=== PATIENT | male | born 1955 | race African-American/Black ===

== ENCOUNTER 2017-03-09 18:14 | Inpatient (IN) ==
[2017-03-09 19:56] LABS: Basophils # 0.1 10*3/uL (0.0-0.2); Basophils % 2.1 % (0.0-0.8); Eosinophils # 0.1 10*3/uL (0.0-0.87); Eosinophils % 1.9 % (0.00-10.9); Hemoglobin 10.1 GM/DL (14.0-18.0); Immature Granulocytes % 0.4 %; Immature Granulocytes Absolute 0.02 #; Lymphocytes # 0.6 10*3/uL (1.4-4.0); Mean Corpuscular HGB Conc 30.6 GM/DL (32-36); Mean Corpuscular Hemoglobin 27 PG (27-34); Mean Corpuscular Volume 88.2 FL (87-102); Mean Platelet Volume 12.2 FL (9.6-12.0); Monocytes # 0.3 10*3/uL (0.11-0.8); Monocytes % 6.6 % (1.7-12.7); Platelet Count 204 T/CUMM (130-400); Red Blood Count 3.74 MC/CUMM (3.8-5.5); Red Cell Distribution Width 15.5 % (9.3-17.3); White Blood Count 5.2 T/CUMM (4-12)
[2017-03-09 20:19] LABS: CKMB % 2.3 %; Calcium 6.5 MG/DL (8.5-10.1); Osmolality,Calculated 316.1 MOS/KG (273-304); Potassium 4.4 MMOL/L (3.5-5.1)
[2017-03-09 20:20] LABS: Troponin I Only 0.173 NG/ML (0.00-0.045)
[2017-03-09] MEDS ORDERED: FLUTICASONE 220 MCG/PUFF INHALER 12 GM INH PRN (21:47)
[2017-03-09] MEDS ORDERED: hydrALAZINE 20 MG/1 ML VIAL IV PRN (22:12)
[2017-03-09 22:51] LABS: Apearance,Urine Slightly Hazy (Clear); Bilirubin,Urine Negative (Negative); Blood, Urine Moderate mg/dL (Negative); Glucose,Urine (UA) Negative (Negative); Hyaline Casts,Urine 1 /LPF (0-3); Ketones,Urine Negative (Negative); Nitrite,Urine Negative (Negative); Protein,Urine >=500 MG/DL; RBC,Urine 55 /HPF (0-4); Urine Color Yellow (Yellow); Urine Specific Gravity 1.012 (1.001-1.035); Urine Urobilinogen < 2.0 EU/DL (0.2-1.0); WBC,Urine 1 /HPF (0-6)
[2017-03-09 23:38] LABS: INR 1.7; PT Patient Result 18.1 SECS; Partial Thromboplastin Time 31.9 SECS (0-40)
[2017-03-10] MEDS: BUMETANIDE 1 MG/4 ML VIAL IV SCH ×2 (02:16→16:27)
[2017-03-10] MEDS: HEPARIN DRIP 25,000 UNITS/500 ML PREMIX IV SCH (02:33)
[2017-03-10 03:30] LABS: Basophils # 0.1 10*3/uL (0.0-0.2); Basophils % 2.1 % (0.0-0.8); Eosinophils # 0.2 10*3/uL (0.0-0.87); Eosinophils % 3.4 % (0.00-10.9); Hematocrit 30.3 VOL% (42.0-52.0); Hemoglobin 9.6 GM/DL (14.0-18.0); Immature Granulocytes % 0.4 %; Immature Granulocytes Absolute 0.02 #; Lymphocytes # 0.8 10*3/uL (1.4-4.0); Lymphocytes % 14.7 % (21.2-54.2); Mean Corpuscular HGB Conc 31.7 GM/DL (32-36); Mean Corpuscular Hemoglobin 27 PG (27-34); Mean Corpuscular Volume 86.3 FL (87-102); Mean Platelet Volume 12.9 FL (9.6-12.0); Monocytes # 0.5 10*3/uL (0.11-0.8); Monocytes % 10.1 % (1.7-12.7); Neutrophils # 3.6 10*3/uL (1.4-7.4); Neutrophils % 69.3 % (38.7-73.9); Platelet Count 205 T/CUMM (130-400); Red Blood Count 3.51 MC/CUMM (3.8-5.5); Red Cell Distribution Width 15.5 % (9.3-17.3); White Blood Count 5.2 T/CUMM (4-12)
[2017-03-10 03:55] LABS: Calcium 6.5 MG/DL (8.5-10.1); Potassium 4.7 MMOL/L (3.5-5.1)
[2017-03-10] MEDS: TACROLIMUS 0.5 MG CAPSULE PO SCH ×2 (10:01→21:39)
[2017-03-10] MEDS: TAMSULOSIN 0.4 MG CAPSULE PO SCH (10:02)
[2017-03-10] MEDS: oxyCODONE ER 20 MG TABLET PO SCH ×2 (10:02→21:39)
[2017-03-10] MEDS: metOLazone 5 MG TABLET PO SCH (10:03)
[2017-03-10] MEDS: predniSONE 5 MG TABLET PO SCH (10:03)
[2017-03-10] MEDS: ASPIRIN EC 81 MG TABLET PO SCH (10:04)
[2017-03-10] MEDS: MYCOPHENOLATE MOFETIL 250 MG CAPSULE PO SCH ×2 (10:04→21:42)
[2017-03-10] MEDS: FUROSEMIDE 80 MG TABLET PO SCH (16:27)
[2017-03-11] MEDS: HEPARIN DRIP 25,000 UNITS/500 ML PREMIX IV SCH ×2 (01:25→22:21)
[2017-03-11] MEDS: oxyCODONE/ACETAMINOPHEN 5-325 MG TABLET PO PRN (03:10)
[2017-03-11] MEDS: BUMETANIDE 1 MG/4 ML VIAL IV SCH (03:10)
[2017-03-11 06:39] LABS: Basophils # 0.1 10*3/uL (0.0-0.2); Basophils % 1.8 % (0.0-0.8); Eosinophils # 0.1 10*3/uL (0.0-0.87); Eosinophils % 3.7 % (0.00-10.9); Hematocrit 27.8 VOL% (42.0-52.0); Hemoglobin 8.7 GM/DL (14.0-18.0); Immature Granulocytes % 0.3 %; Immature Granulocytes Absolute 0.01 #; Lymphocytes # 0.7 10*3/uL (1.4-4.0); Lymphocytes % 18.7 % (21.2-54.2); Mean Corpuscular HGB Conc 31.3 GM/DL (32-36); Mean Corpuscular Hemoglobin 27 PG (27-34); Mean Corpuscular Volume 86.6 FL (87-102); Mean Platelet Volume 12.8 FL (9.6-12.0); Monocytes # 0.5 10*3/uL (0.11-0.8); Monocytes % 12.6 % (1.7-12.7); Neutrophils # 2.4 10*3/uL (1.4-7.4); Neutrophils % 62.9 % (38.7-73.9); Platelet Count 183 T/CUMM (130-400); Red Blood Count 3.21 MC/CUMM (3.8-5.5); Red Cell Distribution Width 15.7 % (9.3-17.3); White Blood Count 3.8 T/CUMM (4-12)
[2017-03-11 07:32] LABS: Calcium 6.1 MG/DL (8.5-10.1)
[2017-03-11 07:33] LABS: Osmolality,Calculated 316.3 MOS/KG (273-304); Potassium 4.4 MMOL/L (3.5-5.1)
[2017-03-11] MEDS: MYCOPHENOLATE MOFETIL 250 MG CAPSULE PO SCH ×2 (08:20→21:26)
[2017-03-11] MEDS: metOLazone 5 MG TABLET PO SCH (08:20)
[2017-03-11] MEDS: ASPIRIN EC 81 MG TABLET PO SCH (08:20)
[2017-03-11] MEDS: TAMSULOSIN 0.4 MG CAPSULE PO SCH (08:20)
[2017-03-11] MEDS: TACROLIMUS 0.5 MG CAPSULE PO SCH ×2 (08:20→21:26)
[2017-03-11] MEDS: predniSONE 5 MG TABLET PO SCH (08:20)
[2017-03-11] MEDS: FUROSEMIDE 80 MG TABLET PO SCH ×2 (08:21→15:49)
[2017-03-11] MEDS: oxyCODONE ER 20 MG TABLET PO SCH ×2 (08:21→22:24)
[2017-03-11] MEDS: ONDANSETRON 4 MG TABLET PO PRN (08:28)
[2017-03-11] MEDS: DIGOXIN 0.125 MG TABLET PO SCH (08:28)
[2017-03-11] MEDS: BUMETANIDE 2.5 MG/10 ML VIAL IV SCH (13:45)
[2017-03-11 18:42] LABS: INR 1.6; PT Patient Result 16.3 SECS
[2017-03-12 02:01] LABS: Basophils # 0.1 10*3/uL (0.0-0.2); Basophils % 1.6 % (0.0-0.8); Eosinophils # 0.1 10*3/uL (0.0-0.87); Eosinophils % 3.4 % (0.00-10.9); Hematocrit 27.3 VOL% (42.0-52.0); Hemoglobin 8.5 GM/DL (14.0-18.0); Immature Granulocytes % 0.3 %; Immature Granulocytes Absolute 0.01 #; Lymphocytes # 0.7 10*3/uL (1.4-4.0); Lymphocytes % 17.3 % (21.2-54.2); Mean Corpuscular HGB Conc 31.1 GM/DL (32-36); Mean Corpuscular Hemoglobin 27 PG (27-34); Mean Corpuscular Volume 86.7 FL (87-102); Monocytes # 0.4 10*3/uL (0.11-0.8); Monocytes % 11.4 % (1.7-12.7); Neutrophils # 2.6 10*3/uL (1.4-7.4); Platelet Count 154 T/CUMM (130-400); Red Blood Count 3.15 MC/CUMM (3.8-5.5); Red Cell Distribution Width 15.9 % (9.3-17.3); White Blood Count 3.9 T/CUMM (4-12)
[2017-03-12 02:11] LABS: INR 1.6; PT Patient Result 16.4 SECS
[2017-03-12 02:44] LABS: Osmolality,Calculated 316.3 MOS/KG (273-304); Potassium 4.7 MMOL/L (3.5-5.1)
[2017-03-12 02:47] LABS: Calcium 5.9 MG/DL (8.5-10.1)
[2017-03-12] MEDS ORDERED: CALCIUM GLUCONATE 2,000 MG in SODIUM CHLORIDE 0.9% 100 ML IV ONE (02:53)
[2017-03-12] MEDS ORDERED: CALCIUM GLUCONATE 1,000 MG/10 ML VIAL IV ONE (03:07)
[2017-03-12] MEDS: HEPARIN DRIP 25,000 UNITS/500 ML PREMIX IV SCH ×2 (03:08→20:24)
[2017-03-12] MEDS: BUMETANIDE 2.5 MG/10 ML VIAL IV SCH ×2 (03:28→14:25)
[2017-03-12 07:00] LABS: Calcium 6.4 MG/DL (8.5-10.1); Osmolality,Calculated 316.3 MOS/KG (273-304); Potassium 4.7 MMOL/L (3.5-5.1)
[2017-03-12] MEDS: predniSONE 5 MG TABLET PO SCH (08:10)
[2017-03-12] MEDS: metOLazone 5 MG TABLET PO SCH (08:10)
[2017-03-12] MEDS: oxyCODONE ER 20 MG TABLET PO SCH ×2 (08:10→20:27)
[2017-03-12] MEDS: FUROSEMIDE 80 MG TABLET PO SCH ×2 (08:10→14:59)
[2017-03-12] MEDS: MYCOPHENOLATE MOFETIL 250 MG CAPSULE PO SCH ×2 (08:10→20:26)
[2017-03-12] MEDS: ASPIRIN EC 81 MG TABLET PO SCH (08:10)
[2017-03-12] MEDS: TAMSULOSIN 0.4 MG CAPSULE PO SCH (08:10)
[2017-03-12] MEDS: TACROLIMUS 0.5 MG CAPSULE PO SCH ×2 (08:10→20:26)
[2017-03-12] MEDS ORDERED: CALCIUM GLUCONATE 2,000 MG in SODIUM CHLORIDE 0.9% 50 ML IV PRN (09:55)
[2017-03-12] MEDS: CALCITRIOL 0.5 MCG CAPSULE PO SCH ×2 (10:10→20:27)
[2017-03-12] MEDS: DOCUSATE SODIUM 100 MG CAPSULE PO SCH ×2 (14:26→20:26)
[2017-03-12] MEDS: oxyCODONE/ACETAMINOPHEN 5-325 MG TABLET PO PRN (17:36)
[2017-03-13] MEDS: HEPARIN DRIP 25,000 UNITS/500 ML PREMIX IV SCH ×2 (02:06→17:13)
[2017-03-13] MEDS: BUMETANIDE 2.5 MG/10 ML VIAL IV SCH ×2 (02:06→15:39)
[2017-03-13] MEDS: oxyCODONE ER 20 MG TABLET PO SCH ×2 (08:55→21:12)
[2017-03-13] MEDS: CALCITRIOL 0.5 MCG CAPSULE PO SCH ×2 (08:55→21:12)
[2017-03-13] MEDS: FUROSEMIDE 80 MG TABLET PO SCH ×2 (08:56→15:39)
[2017-03-13] MEDS: TACROLIMUS 0.5 MG CAPSULE PO SCH ×2 (08:56→21:12)
[2017-03-13] MEDS: MYCOPHENOLATE MOFETIL 250 MG CAPSULE PO SCH ×2 (08:56→21:12)
[2017-03-13] MEDS: ASPIRIN EC 81 MG TABLET PO SCH (08:56)
[2017-03-13] MEDS: TAMSULOSIN 0.4 MG CAPSULE PO SCH (08:56)
[2017-03-13] MEDS: metOLazone 5 MG TABLET PO SCH (08:56)
[2017-03-13] MEDS: predniSONE 5 MG TABLET PO SCH (08:56)
[2017-03-13] MEDS: DIGOXIN 0.125 MG TABLET PO SCH (08:56)
[2017-03-13] MEDS: DOCUSATE SODIUM 100 MG CAPSULE PO SCH ×2 (08:56→21:12)
[2017-03-14] MEDS: BUMETANIDE 2.5 MG/10 ML VIAL IV SCH (05:32)
[2017-03-14 06:19] LABS: Basophils # 0.1 10*3/uL (0.0-0.2); Basophils % 1.6 % (0.0-0.8); Eosinophils # 0.2 10*3/uL (0.0-0.87); Eosinophils % 4.1 % (0.00-10.9); Hematocrit 28.8 VOL% (42.0-52.0); Immature Granulocytes % 0.5 %; Immature Granulocytes Absolute 0.02 #; Lymphocytes # 0.7 10*3/uL (1.4-4.0); Lymphocytes % 15.9 % (21.2-54.2); Mean Corpuscular HGB Conc 31.3 GM/DL (32-36); Mean Corpuscular Hemoglobin 27 PG (27-34); Mean Corpuscular Volume 85.5 FL (87-102); Mean Platelet Volume 11.1 FL (9.6-12.0); Monocytes # 0.5 10*3/uL (0.11-0.8); Monocytes % 11.3 % (1.7-12.7); Neutrophils # 2.9 10*3/uL (1.4-7.4); Neutrophils % 66.6 % (38.7-73.9); Platelet Count 160 T/CUMM (130-400); Red Blood Count 3.37 MC/CUMM (3.8-5.5); Red Cell Distribution Width 15.7 % (9.3-17.3); White Blood Count 4.4 T/CUMM (4-12)
[2017-03-14 06:58] LABS: Calcium 6.6 MG/DL (8.5-10.1); Osmolality,Calculated 313.3 MOS/KG (273-304); Potassium 4.2 MMOL/L (3.5-5.1)
[2017-03-14] MEDS: MYCOPHENOLATE MOFETIL 250 MG CAPSULE PO SCH ×2 (09:11→20:20)
[2017-03-14] MEDS: TACROLIMUS 0.5 MG CAPSULE PO SCH ×2 (09:11→20:20)
[2017-03-14] MEDS: ASPIRIN EC 81 MG TABLET PO SCH (09:11)
[2017-03-14] MEDS: predniSONE 5 MG TABLET PO SCH (09:11)
[2017-03-14] MEDS: DOCUSATE SODIUM 100 MG CAPSULE PO SCH ×2 (09:11→20:21)
[2017-03-14] MEDS: FUROSEMIDE 80 MG TABLET PO SCH ×2 (09:11→17:55)
[2017-03-14] MEDS: CALCITRIOL 0.5 MCG CAPSULE PO SCH ×2 (09:11→20:20)
[2017-03-14] MEDS: oxyCODONE ER 20 MG TABLET PO SCH ×2 (09:11→20:20)
[2017-03-14] MEDS: metOLazone 5 MG TABLET PO SCH (09:12)
[2017-03-14] MEDS: TAMSULOSIN 0.4 MG CAPSULE PO SCH (09:12)
[2017-03-14] MEDS: HEPARIN DRIP 25,000 UNITS/500 ML PREMIX IV SCH (16:02)
[2017-03-14 17:48] LABS: INR 1.3; PT Patient Result 13.4 SECS
[2017-03-14] MEDS: WARFARIN 3 MG TABLET PO SCH (17:56)
[2017-03-14] MEDS: CALCIUM (CARBONATE) 600 MG TABLET PO SCH (20:20)
[2017-03-14] MEDS: CARVEDILOL 3.125 MG TABLET PO SCH (20:21)
[2017-03-15] MEDS: CARVEDILOL 3.125 MG TABLET PO SCH (10:04)
[2017-03-15] MEDS: predniSONE 5 MG TABLET PO SCH (10:04)
[2017-03-15] MEDS: CALCIUM (CARBONATE) 600 MG TABLET PO SCH ×2 (10:08→21:05)
[2017-03-15] MEDS: ASPIRIN EC 81 MG TABLET PO SCH (10:09)
[2017-03-15] MEDS: CALCITRIOL 0.5 MCG CAPSULE PO SCH ×2 (10:09→21:06)
[2017-03-15] MEDS: TACROLIMUS 0.5 MG CAPSULE PO SCH ×2 (10:10→21:07)
[2017-03-15] MEDS: DIGOXIN 0.125 MG TABLET PO SCH (10:10)
[2017-03-15] MEDS: DILTIAZEM CD 180 MG CAPSULE PO SCH ×2 (10:11→21:06)
[2017-03-15] MEDS: MYCOPHENOLATE MOFETIL 250 MG CAPSULE PO SCH ×2 (10:11→21:06)
[2017-03-15] MEDS: oxyCODONE ER 20 MG TABLET PO SCH ×2 (10:11→21:07)
[2017-03-15] MEDS: metOLazone 5 MG TABLET PO SCH ×2 (10:12→21:07)
[2017-03-15] MEDS: TAMSULOSIN 0.4 MG CAPSULE PO SCH (10:12)
[2017-03-15] MEDS: DOCUSATE SODIUM 100 MG CAPSULE PO SCH ×2 (10:14→21:05)
[2017-03-15] MEDS: FUROSEMIDE 80 MG TABLET PO SCH (11:45)
[2017-03-15] MEDS: HEPARIN DRIP 25,000 UNITS/500 ML PREMIX IV SCH (17:00)
[2017-03-15] MEDS: ONDANSETRON 4 MG TABLET PO PRN (17:01)
[2017-03-15] MEDS: WARFARIN 3 MG TABLET PO SCH (18:01)
[2017-03-15] MEDS: FUROSEMIDE INJ 240 MG in SODIUM CHLORIDE 0.9% 50 ML IV SCH (18:02)
[2017-03-15] MEDS: METOPROLOL TARTRATE 100 MG TABLET PO SCH (21:06)
[2017-03-16 05:44] LABS: Basophils # 0.1 10*3/uL (0.0-0.2); Basophils % 2.1 % (0.0-0.8); Eosinophils # 0.2 10*3/uL (0.0-0.87); Eosinophils % 3.5 % (0.00-10.9); Hematocrit 28.3 VOL% (42.0-52.0); Hemoglobin 8.9 GM/DL (14.0-18.0); Immature Granulocytes % 0.5 %; Immature Granulocytes Absolute 0.02 #; Lymphocytes # 0.7 10*3/uL (1.4-4.0); Lymphocytes % 16.7 % (21.2-54.2); Mean Corpuscular HGB Conc 31.4 GM/DL (32-36); Mean Corpuscular Hemoglobin 27 PG (27-34); Mean Corpuscular Volume 84.7 FL (87-102); Mean Platelet Volume 13.1 FL (9.6-12.0); Monocytes # 0.5 10*3/uL (0.11-0.8); Monocytes % 11.3 % (1.7-12.7); Neutrophils # 2.8 10*3/uL (1.4-7.4); Neutrophils % 65.9 % (38.7-73.9); Platelet Count 197 T/CUMM (130-400); Red Blood Count 3.34 MC/CUMM (3.8-5.5); Red Cell Distribution Width 16.1 % (9.3-17.3); White Blood Count 4.2 T/CUMM (4-12)
[2017-03-16 06:16] LABS: Calcium 6.8 MG/DL (8.5-10.1); Osmolality,Calculated 314.4 MOS/KG (273-304); Potassium 4.3 MMOL/L (3.5-5.1)
[2017-03-16 06:20] LABS: Alanine Aminotransferase < 9 U/L (16-61); Albumin 2.7 G/DL (3.4-5.0); Alkaline Phosphatase 142 U/L (45-117); Aspartate Amino Transferase 14 U/L (0-37); Blood Urea Nitrogen 111 MG/DL (7-18); Glucose 75 MG/DL (74-106); Osmolality,Calculated 314.3 MOS/KG (273-304); Potassium 4.4 MMOL/L (3.5-5.1); Sodium 141 MMOL/L (136-145); Total Protein 5.3 G/DL (6.4-8.3)
[2017-03-16] MEDS: CALCITRIOL 0.5 MCG CAPSULE PO SCH ×2 (09:15→21:29)
[2017-03-16] MEDS: TACROLIMUS 0.5 MG CAPSULE PO SCH ×2 (09:15→21:29)
[2017-03-16] MEDS: ASPIRIN EC 81 MG TABLET PO SCH (09:15)
[2017-03-16] MEDS: metOLazone 5 MG TABLET PO SCH ×2 (09:16→21:30)
[2017-03-16] MEDS: predniSONE 5 MG TABLET PO SCH (09:16)
[2017-03-16] MEDS: DOCUSATE SODIUM 100 MG CAPSULE PO SCH ×2 (09:16→21:31)
[2017-03-16] MEDS: CALCIUM (CARBONATE) 600 MG TABLET PO SCH ×2 (09:16→21:30)
[2017-03-16] MEDS: TAMSULOSIN 0.4 MG CAPSULE PO SCH (09:17)
[2017-03-16] MEDS: MYCOPHENOLATE MOFETIL 250 MG CAPSULE PO SCH ×2 (09:17→21:29)
[2017-03-16] MEDS: oxyCODONE ER 20 MG TABLET PO SCH ×2 (09:17→21:30)
[2017-03-16] MEDS: METOPROLOL TARTRATE 100 MG TABLET PO SCH ×2 (09:17→21:30)
[2017-03-16] MEDS: DILTIAZEM CD 180 MG CAPSULE PO SCH ×2 (09:17→21:29)
[2017-03-16] MEDS: FUROSEMIDE INJ 240 MG in SODIUM CHLORIDE 0.9% 50 ML IV SCH ×2 (09:18→16:29)
[2017-03-16 11:27] LABS: INR 1.4
[2017-03-16] MEDS: HEPARIN DRIP 25,000 UNITS/500 ML PREMIX IV SCH (15:05)
[2017-03-16] MEDS: WARFARIN 3 MG TABLET PO SCH (18:10)
[2017-03-17 06:37] LABS: INR 1.6; PT Patient Result 16.4 SECS
[2017-03-17] MEDS: FUROSEMIDE INJ 240 MG in SODIUM CHLORIDE 0.9% 50 ML IV SCH ×2 (08:39→18:12)
[2017-03-17] MEDS: metOLazone 5 MG TABLET PO SCH ×2 (08:40→20:37)
[2017-03-17] MEDS: CALCIUM (CARBONATE) 600 MG TABLET PO SCH ×2 (08:40→20:38)
[2017-03-17] MEDS: DOCUSATE SODIUM 100 MG CAPSULE PO SCH ×2 (08:40→20:37)
[2017-03-17] MEDS: ASPIRIN EC 81 MG TABLET PO SCH (08:40)
[2017-03-17] MEDS: METOPROLOL TARTRATE 100 MG TABLET PO SCH ×2 (08:41→20:49)
[2017-03-17] MEDS: MYCOPHENOLATE MOFETIL 250 MG CAPSULE PO SCH ×2 (08:41→20:37)
[2017-03-17] MEDS: DIGOXIN 0.125 MG TABLET PO SCH (08:41)
[2017-03-17] MEDS: predniSONE 5 MG TABLET PO SCH (08:41)
[2017-03-17] MEDS: TACROLIMUS 0.5 MG CAPSULE PO SCH ×2 (08:41→20:36)
[2017-03-17] MEDS: CALCITRIOL 0.5 MCG CAPSULE PO SCH ×2 (08:41→20:36)
[2017-03-17] MEDS: TAMSULOSIN 0.4 MG CAPSULE PO SCH (08:42)
[2017-03-17] MEDS: oxyCODONE ER 20 MG TABLET PO SCH (08:42)
[2017-03-17] MEDS: DILTIAZEM CD 180 MG CAPSULE PO SCH ×2 (08:42→20:37)
[2017-03-17] MEDS: WARFARIN 3 MG TABLET PO SCH (17:46)
[2017-03-18 06:08] LABS: INR 1.7
[2017-03-18 06:44] LABS: Basophils # 0.1 10*3/uL (0.0-0.2); Basophils % 1.9 % (0.0-0.8); Eosinophils # 0.2 10*3/uL (0.0-0.87); Eosinophils % 3.3 % (0.00-10.9); Hematocrit 28.4 VOL% (42.0-52.0); Hemoglobin 8.7 GM/DL (14.0-18.0); Immature Granulocytes % 0.4 %; Immature Granulocytes Absolute 0.02 #; Lymphocytes # 0.7 10*3/uL (1.4-4.0); Lymphocytes % 13.7 % (21.2-54.2); Mean Corpuscular HGB Conc 30.6 GM/DL (32-36); Mean Corpuscular Hemoglobin 26 PG (27-34); Mean Corpuscular Volume 86.1 FL (87-102); Mean Platelet Volume 12.5 FL (9.6-12.0); Monocytes # 0.5 10*3/uL (0.11-0.8); Monocytes % 9.8 % (1.7-12.7); Neutrophils # 3.8 10*3/uL (1.4-7.4); Neutrophils % 70.9 % (38.7-73.9); Platelet Count 189 T/CUMM (130-400); Red Cell Distribution Width 16.1 % (9.3-17.3); White Blood Count 5.4 T/CUMM (4-12)
[2017-03-18 07:24] LABS: Calcium 6.7 MG/DL (8.5-10.1); Osmolality,Calculated 315.4 MOS/KG (273-304); Potassium 4.4 MMOL/L (3.5-5.1)
[2017-03-18] MEDS: metOLazone 5 MG TABLET PO SCH ×2 (08:58→20:21)
[2017-03-18] MEDS: TAMSULOSIN 0.4 MG CAPSULE PO SCH (08:59)
[2017-03-18] MEDS: TACROLIMUS 0.5 MG CAPSULE PO SCH ×2 (08:59→20:21)
[2017-03-18] MEDS: METOPROLOL TARTRATE 100 MG TABLET PO SCH ×2 (08:59→20:20)
[2017-03-18] MEDS: CALCITRIOL 0.5 MCG CAPSULE PO SCH ×2 (08:59→20:26)
[2017-03-18] MEDS: MYCOPHENOLATE MOFETIL 250 MG CAPSULE PO SCH ×2 (08:59→20:20)
[2017-03-18] MEDS: predniSONE 5 MG TABLET PO SCH (09:00)
[2017-03-18] MEDS: ASPIRIN EC 81 MG TABLET PO SCH (09:00)
[2017-03-18] MEDS: DOCUSATE SODIUM 100 MG CAPSULE PO SCH ×2 (09:00→20:20)
[2017-03-18] MEDS: CALCIUM (CARBONATE) 600 MG TABLET PO SCH ×2 (09:00→20:20)
[2017-03-18] MEDS: DILTIAZEM CD 180 MG CAPSULE PO SCH ×2 (09:00→20:20)
[2017-03-18] MEDS: FUROSEMIDE INJ 240 MG in SODIUM CHLORIDE 0.9% 50 ML IV SCH ×2 (09:01→16:26)
[2017-03-18] MEDS: oxyCODONE ER 20 MG TABLET PO SCH ×2 (10:47→20:21)
[2017-03-18] MEDS ORDERED: CALCIUM GLUCONATE 2,000 MG in SODIUM CHLORIDE 0.9% 100 ML IV ONE (15:00)
[2017-03-18] MEDS: LORATADINE 10 MG TABLET PO PRN (15:30)
[2017-03-18] MEDS: WARFARIN 3 MG TABLET PO SCH (18:03)
[2017-03-19 07:09] LABS: Basophils # 0.1 10*3/uL (0.0-0.2); Basophils % 1.3 % (0.0-0.8); Eosinophils # 0.2 10*3/uL (0.0-0.87); Eosinophils % 3.6 % (0.00-10.9); Hematocrit 27.7 VOL% (42.0-52.0); Hemoglobin 8.8 GM/DL (14.0-18.0); Immature Granulocytes % 0.7 %; Immature Granulocytes Absolute 0.03 #; Lymphocytes # 0.6 10*3/uL (1.4-4.0); Lymphocytes % 13.6 % (21.2-54.2); Mean Corpuscular HGB Conc 31.8 GM/DL (32-36); Mean Corpuscular Hemoglobin 27 PG (27-34); Monocytes # 0.4 10*3/uL (0.11-0.8); Monocytes % 7.8 % (1.7-12.7); Neutrophils # 3.3 10*3/uL (1.4-7.4); Platelet Count 199 T/CUMM (130-400); Red Blood Count 3.26 MC/CUMM (3.8-5.5); Red Cell Distribution Width 16.1 % (9.3-17.3); White Blood Count 4.5 T/CUMM (4-12)
[2017-03-19 07:17] LABS: INR 2.2
[2017-03-19 07:31] LABS: Calcium 6.8 MG/DL (8.5-10.1); Osmolality,Calculated 318.3 MOS/KG (273-304); Potassium 4.5 MMOL/L (3.5-5.1)
[2017-03-19] MEDS: TACROLIMUS 0.5 MG CAPSULE PO SCH ×2 (09:39→21:00)
[2017-03-19] MEDS: DIGOXIN 0.125 MG TABLET PO SCH (09:39)
[2017-03-19] MEDS: TAMSULOSIN 0.4 MG CAPSULE PO SCH (09:39)
[2017-03-19] MEDS: CALCITRIOL 0.5 MCG CAPSULE PO SCH ×2 (09:39→21:00)
[2017-03-19] MEDS: metOLazone 5 MG TABLET PO SCH ×2 (09:40→21:01)
[2017-03-19] MEDS: predniSONE 5 MG TABLET PO SCH (09:40)
[2017-03-19] MEDS: DILTIAZEM CD 180 MG CAPSULE PO SCH ×2 (09:41→21:02)
[2017-03-19] MEDS: CALCIUM (CARBONATE) 600 MG TABLET PO SCH ×2 (09:41→21:00)
[2017-03-19] MEDS: METOPROLOL TARTRATE 100 MG TABLET PO SCH ×2 (09:41→21:02)
[2017-03-19] MEDS: DOCUSATE SODIUM 100 MG CAPSULE PO SCH ×2 (09:41→21:02)
[2017-03-19] MEDS: oxyCODONE ER 20 MG TABLET PO SCH ×2 (09:41→21:01)
[2017-03-19] MEDS: ASPIRIN EC 81 MG TABLET PO SCH (09:42)
[2017-03-19] MEDS: FUROSEMIDE INJ 240 MG in SODIUM CHLORIDE 0.9% 50 ML IV SCH ×2 (09:44→15:00)
[2017-03-19] MEDS: MYCOPHENOLATE MOFETIL 250 MG CAPSULE PO SCH ×2 (09:46→21:02)
[2017-03-19] MEDS: LORATADINE 10 MG TABLET PO PRN (09:46)
[2017-03-19] MEDS ORDERED: CALCIUM GLUCONATE 2,000 MG in SODIUM CHLORIDE 0.9% 100 ML IV ONE (11:41)
[2017-03-19] MEDS: WARFARIN 3 MG TABLET PO SCH (18:12)
[2017-03-20 06:11] LABS: Basophils # 0.1 10*3/uL (0.0-0.2); Basophils % 1.3 % (0.0-0.8); Eosinophils # 0.2 10*3/uL (0.0-0.87); Eosinophils % 3.6 % (0.00-10.9); Hematocrit 26.8 VOL% (42.0-52.0); Hemoglobin 8.5 GM/DL (14.0-18.0); Immature Granulocytes % 0.6 %; Immature Granulocytes Absolute 0.03 #; Lymphocytes # 0.6 10*3/uL (1.4-4.0); Lymphocytes % 13.3 % (21.2-54.2); Mean Corpuscular HGB Conc 31.7 GM/DL (32-36); Mean Corpuscular Hemoglobin 27 PG (27-34); Mean Corpuscular Volume 84.5 FL (87-102); Mean Platelet Volume 12.4 FL (9.6-12.0); Monocytes # 0.5 10*3/uL (0.11-0.8); Monocytes % 9.9 % (1.7-12.7); Neutrophils # 3.4 10*3/uL (1.4-7.4); Neutrophils % 71.3 % (38.7-73.9); Platelet Count 189 T/CUMM (130-400); Red Blood Count 3.17 MC/CUMM (3.8-5.5); Red Cell Distribution Width 16.2 % (9.3-17.3); White Blood Count 4.7 T/CUMM (4-12)
[2017-03-20 06:22] LABS: INR 2.9
[2017-03-20 06:25] LABS: PT Patient Result 29.4 SECS
[2017-03-20 06:43] LABS: Calcium 6.7 MG/DL (8.5-10.1); Osmolality,Calculated 317.3 MOS/KG (273-304); Potassium 4.3 MMOL/L (3.5-5.1)
[2017-03-20] MEDS: CALCIUM (CARBONATE) 600 MG TABLET PO SCH ×2 (10:41→20:19)
[2017-03-20] MEDS: TACROLIMUS 0.5 MG CAPSULE PO SCH ×2 (10:41→20:19)
[2017-03-20] MEDS: CALCITRIOL 0.5 MCG CAPSULE PO SCH ×2 (10:41→20:20)
[2017-03-20] MEDS: MYCOPHENOLATE MOFETIL 250 MG CAPSULE PO SCH ×2 (10:42→20:19)
[2017-03-20] MEDS: ASPIRIN EC 81 MG TABLET PO SCH (10:43)
[2017-03-20] MEDS: metOLazone 5 MG TABLET PO SCH ×2 (10:43→20:20)
[2017-03-20] MEDS: TAMSULOSIN 0.4 MG CAPSULE PO SCH (10:43)
[2017-03-20] MEDS: oxyCODONE ER 20 MG TABLET PO SCH ×2 (10:44→20:19)
[2017-03-20] MEDS: predniSONE 5 MG TABLET PO SCH (10:44)
[2017-03-20] MEDS: DOCUSATE SODIUM 100 MG CAPSULE PO SCH ×2 (10:44→20:19)
[2017-03-20] MEDS: DILTIAZEM CD 180 MG CAPSULE PO SCH ×2 (10:45→20:19)
[2017-03-20] MEDS: METOPROLOL TARTRATE 100 MG TABLET PO SCH ×2 (10:45→20:19)
[2017-03-20] MEDS: FUROSEMIDE INJ 240 MG in SODIUM CHLORIDE 0.9% 50 ML IV SCH ×2 (10:46→16:13)
[2017-03-20] MEDS ORDERED: PHYTONADIONE 5 MG TABLET PO ONE (15:01)
[2017-03-20 15:17] LABS: Hepatitis A Ab IgM Quant 0.14 Index; Hepatitis A Ab IgM Result Negative (Negative); Hepatitis B Core IgM Quant 0.06 Index; Hepatitis B Core IgM Result Negative (Negative); Hepatitis B Surface Ag Quant < 0.10 Index; Hepatitis B Surface Ag Result Negative (Negative); Hepatitis C Virus Ab Quant 0.04 Index; Hepatitis C Virus Ab Result Negative (Negative)
[2017-03-21] MEDS ORDERED: ceFAZolin 1,000 MG in SYRINGE 1 EACH IV ONE (06:00)
[2017-03-21 06:01] LABS: Basophils # 0.1 10*3/uL (0.0-0.2); Basophils % 1.8 % (0.0-0.8); Eosinophils # 0.2 10*3/uL (0.0-0.87); Eosinophils % 3.6 % (0.00-10.9); Hematocrit 28.8 VOL% (42.0-52.0); Hemoglobin 9.1 GM/DL (14.0-18.0); Immature Granulocytes % 0.4 %; Immature Granulocytes Absolute 0.02 #; Lymphocytes # 0.8 10*3/uL (1.4-4.0); Lymphocytes % 13.8 % (21.2-54.2); Mean Corpuscular HGB Conc 31.6 GM/DL (32-36); Mean Corpuscular Hemoglobin 27 PG (27-34); Mean Corpuscular Volume 84.5 FL (87-102); Mean Platelet Volume 12.6 FL (9.6-12.0); Monocytes # 0.6 10*3/uL (0.11-0.8); Neutrophils # 3.9 10*3/uL (1.4-7.4); Neutrophils % 70.4 % (38.7-73.9); Platelet Count 215 T/CUMM (130-400); Red Blood Count 3.41 MC/CUMM (3.8-5.5); Red Cell Distribution Width 16.4 % (9.3-17.3); White Blood Count 5.5 T/CUMM (4-12)
[2017-03-21 06:31] LABS: Calcium 6.7 MG/DL (8.5-10.1); Osmolality,Calculated 317.4 MOS/KG (273-304); Potassium 4.7 MMOL/L (3.5-5.1)
[2017-03-21 07:16] LABS: PT Patient Result 20.1 SECS; Partial Thromboplastin Time 36.6 SECS (0-40)
[2017-03-21] MEDS: DIGOXIN 0.125 MG TABLET PO SCH (10:06)
[2017-03-21] MEDS: TACROLIMUS 0.5 MG CAPSULE PO SCH ×2 (10:06→21:39)
[2017-03-21] MEDS: CALCITRIOL 0.5 MCG CAPSULE PO SCH ×2 (10:07→21:38)
[2017-03-21] MEDS: TAMSULOSIN 0.4 MG CAPSULE PO SCH (10:07)
[2017-03-21] MEDS: METOPROLOL TARTRATE 100 MG TABLET PO SCH ×2 (10:07→21:37)
[2017-03-21] MEDS: LORATADINE 10 MG TABLET PO PRN (10:08)
[2017-03-21] MEDS: metOLazone 5 MG TABLET PO SCH ×2 (10:08→21:38)
[2017-03-21] MEDS: MYCOPHENOLATE MOFETIL 250 MG CAPSULE PO SCH ×2 (10:08→21:38)
[2017-03-21] MEDS: ASPIRIN EC 81 MG TABLET PO SCH (10:09)
[2017-03-21] MEDS: CALCIUM (CARBONATE) 600 MG TABLET PO SCH ×2 (10:09→21:39)
[2017-03-21] MEDS: oxyCODONE ER 20 MG TABLET PO SCH ×2 (10:10→21:43)
[2017-03-21] MEDS: predniSONE 5 MG TABLET PO SCH (10:10)
[2017-03-21] MEDS: FUROSEMIDE INJ 240 MG in SODIUM CHLORIDE 0.9% 50 ML IV SCH ×2 (10:11→17:25)
[2017-03-21] MEDS: DOCUSATE SODIUM 100 MG CAPSULE PO SCH ×2 (10:14→21:38)
[2017-03-21] MEDS: DILTIAZEM CD 180 MG CAPSULE PO SCH ×2 (10:15→21:37)
[2017-03-22 02:16] LABS: Basophils # 0.1 10*3/uL (0.0-0.2); Basophils % 1.6 % (0.0-0.8); Eosinophils # 0.2 10*3/uL (0.0-0.87); Hematocrit 27.9 VOL% (42.0-52.0); Hemoglobin 8.7 GM/DL (14.0-18.0); Immature Granulocytes % 0.4 %; Immature Granulocytes Absolute 0.02 #; Lymphocytes # 0.6 10*3/uL (1.4-4.0); Lymphocytes % 12.2 % (21.2-54.2); Mean Corpuscular HGB Conc 31.2 GM/DL (32-36); Mean Corpuscular Hemoglobin 26 PG (27-34); Mean Corpuscular Volume 84.8 FL (87-102); Mean Platelet Volume 12.8 FL (9.6-12.0); Monocytes # 0.5 10*3/uL (0.11-0.8); Monocytes % 10.2 % (1.7-12.7); Neutrophils # 3.6 10*3/uL (1.4-7.4); Neutrophils % 72.6 % (38.7-73.9); Platelet Count 211 T/CUMM (130-400); Red Blood Count 3.29 MC/CUMM (3.8-5.5); Red Cell Distribution Width 16.5 % (9.3-17.3); White Blood Count 4.9 T/CUMM (4-12)
[2017-03-22 02:32] LABS: INR 1.5; PT Patient Result 15.4 SECS; Partial Thromboplastin Time 32.9 SECS (0-40)
[2017-03-22 02:53] LABS: Calcium 6.5 MG/DL (8.5-10.1); Osmolality,Calculated 316.5 MOS/KG (273-304); Potassium 4.6 MMOL/L (3.5-5.1)
[2017-03-22] MEDS ORDERED: BUPIVACAINE 0.25% 50 ML VIAL ONE (06:19)
[2017-03-22] MEDS ORDERED: HEPARIN 5,000 UNIT/1 ML VIAL ONE (06:19)
[2017-03-22] MEDS ORDERED: PROPOFOL 200 MG/20 ML VIAL IV ONE (07:51)
[2017-03-22] MEDS ORDERED: MIDAZOLAM 2 MG/2 ML VIAL ONE (07:52)
[2017-03-22] MEDS ORDERED: fentaNYL 100 MCG/2 ML VIAL ONE (07:52)
[2017-03-22] MEDS ORDERED: ONDANSETRON 4 MG/2 ML VIAL ONE ×2 (07:52→08:01)
[2017-03-22] MEDS ORDERED: HYDROmorphone 2 MG/1 ML VIAL ONE (08:01)
[2017-03-22] MEDS ORDERED: ONDANSETRON 4 MG/2 ML VIAL IV PRN (08:07)
[2017-03-22] MEDS ORDERED: HYDROmorphone 2 MG/1 ML VIAL IV PRN ×2 (08:07→11:43)
[2017-03-22] MEDS: CALCITRIOL 0.5 MCG CAPSULE PO SCH ×2 (10:11→20:40)
[2017-03-22] MEDS: TACROLIMUS 0.5 MG CAPSULE PO SCH ×2 (10:12→20:40)
[2017-03-22] MEDS: TAMSULOSIN 0.4 MG CAPSULE PO SCH (10:13)
[2017-03-22] MEDS: MYCOPHENOLATE MOFETIL 250 MG CAPSULE PO SCH ×2 (10:13→20:41)
[2017-03-22] MEDS: DILTIAZEM CD 180 MG CAPSULE PO SCH ×2 (10:13→20:41)
[2017-03-22] MEDS: oxyCODONE ER 20 MG TABLET PO SCH ×2 (10:14→20:40)
[2017-03-22] MEDS: ASPIRIN EC 81 MG TABLET PO SCH (10:15)
[2017-03-22] MEDS: METOPROLOL TARTRATE 100 MG TABLET PO SCH ×2 (10:15→20:41)
[2017-03-22] MEDS: CALCIUM (CARBONATE) 600 MG TABLET PO SCH ×2 (10:15→20:41)
[2017-03-22] MEDS: metOLazone 5 MG TABLET PO SCH (10:15)
[2017-03-22] MEDS: FUROSEMIDE INJ 240 MG in SODIUM CHLORIDE 0.9% 50 ML IV SCH ×2 (10:16→18:41)
[2017-03-22] MEDS: LORATADINE 10 MG TABLET PO PRN (10:16)
[2017-03-22] MEDS: DOCUSATE SODIUM 100 MG CAPSULE PO SCH ×2 (10:16→20:40)
[2017-03-22] MEDS: predniSONE 5 MG TABLET PO SCH (10:16)
[2017-03-22] MEDS ORDERED: WARFARIN 3 MG TABLET PO SCH (18:00)
[2017-03-22] MEDS ORDERED: HEPARIN 10,000 UNIT/10 ML VIAL IV SCH (18:00)
[2017-03-23] MEDS: DILTIAZEM CD 180 MG CAPSULE PO SCH ×2 (16:04→21:26)
[2017-03-23] MEDS: oxyCODONE ER 20 MG TABLET PO SCH ×2 (16:04→21:25)
[2017-03-23] MEDS: DIGOXIN 0.125 MG TABLET PO SCH (16:04)
[2017-03-23] MEDS: DOCUSATE SODIUM 100 MG CAPSULE PO SCH ×2 (16:04→21:25)
[2017-03-23] MEDS: CALCIUM (CARBONATE) 600 MG TABLET PO SCH ×2 (16:04→21:25)
[2017-03-23] MEDS: MYCOPHENOLATE MOFETIL 250 MG CAPSULE PO SCH ×2 (16:04→21:26)
[2017-03-23] MEDS: predniSONE 5 MG TABLET PO SCH (16:04)
[2017-03-23] MEDS: ASPIRIN EC 81 MG TABLET PO SCH (16:04)
[2017-03-23] MEDS: TAMSULOSIN 0.4 MG CAPSULE PO SCH (16:04)
[2017-03-23] MEDS: METOPROLOL TARTRATE 100 MG TABLET PO SCH ×2 (16:04→21:26)
[2017-03-23] MEDS: CALCITRIOL 0.5 MCG CAPSULE PO SCH ×2 (16:05→21:25)
[2017-03-23] MEDS: TACROLIMUS 0.5 MG CAPSULE PO SCH ×2 (16:05→21:25)
[2017-03-23] MEDS ORDERED: WARFARIN 3 MG TABLET PO SCH (18:00)
[2017-03-24 07:20] LABS: Alanine Aminotransferase < 9 U/L (16-61); Albumin 2.7 G/DL (3.4-5.0); Alkaline Phosphatase 133 U/L (45-117); Aspartate Amino Transferase 8 U/L (0-37); Blood Urea Nitrogen 70 MG/DL (7-18); Calcium 6.8 MG/DL (8.5-10.1); Glucose 82 MG/DL (74-106); Potassium 4.7 MMOL/L (3.5-5.1); Sodium 136 MMOL/L (136-145)
[2017-03-24] MEDS: DILTIAZEM CD 180 MG CAPSULE PO SCH (08:51)
[2017-03-24] MEDS: METOPROLOL TARTRATE 100 MG TABLET PO SCH (08:51)
[2017-03-24] MEDS: TAMSULOSIN 0.4 MG CAPSULE PO SCH (08:53)
[2017-03-24] MEDS: ASPIRIN EC 81 MG TABLET PO SCH (08:53)
[2017-03-24] MEDS: CALCITRIOL 0.5 MCG CAPSULE PO SCH (08:53)
[2017-03-24] MEDS: TACROLIMUS 0.5 MG CAPSULE PO SCH (08:53)
[2017-03-24] MEDS: DOCUSATE SODIUM 100 MG CAPSULE PO SCH (08:53)
[2017-03-24] MEDS: predniSONE 5 MG TABLET PO SCH (08:53)
[2017-03-24] MEDS: CALCIUM (CARBONATE) 600 MG TABLET PO SCH (08:53)
[2017-03-24] MEDS: MYCOPHENOLATE MOFETIL 250 MG CAPSULE PO SCH (08:53)
[2017-03-24] MEDS: oxyCODONE ER 20 MG TABLET PO SCH (08:53)
[2017-03-24 11:17] VITALS: BP 111/57
== END 2017-03-24 16:55 | disposition home or self-care (01) | DRG 698 ==
LOC: EDUNIT# → N.ED 18:14 → N.EDINP 21:45 → SUATTDRO 21:45 → N.5E 03-10
PROVIDERS: ADMIT Internal Medicine; ATTEND Hospitalist

== ENCOUNTER 2017-06-23 17:00 | Inpatient (IN) ==
[2017-06-23 19:07] LABS: Basophils # 0.1 10*3/uL (0.0-0.2); Basophils % 1.3 % (0.0-0.8); Eosinophils # 0.6 10*3/uL (0.0-0.87); Eosinophils % 10.1 % (0.00-10.9); Hematocrit 36.4 VOL% (42.0-52.0); Hemoglobin 10.8 GM/DL (14.0-18.0); Immature Granulocytes % 0.2 %; Immature Granulocytes Absolute 0.01 #; Lymphocytes # 1.4 10*3/uL (1.4-4.0); Lymphocytes % 25.5 % (21.2-54.2); Mean Corpuscular HGB Conc 29.7 GM/DL (32-36); Mean Corpuscular Hemoglobin 24 PG (27-34); Mean Platelet Volume 10.4 FL (9.6-12.0); Monocytes # 0.4 10*3/uL (0.11-0.8); Monocytes % 7.6 % (1.7-12.7); Neutrophils # 3.1 10*3/uL (1.4-7.4); Neutrophils % 55.3 % (38.7-73.9); Platelet Count 213 T/CUMM (130-400); Red Blood Count 4.44 MC/CUMM (3.8-5.5); Red Cell Distribution Width 16.6 % (9.3-17.3); White Blood Count 5.6 T/CUMM (4-12)
[2017-06-23 19:14] LABS: Alanine Aminotransferase < 6 U/L (16-61); Albumin 2.6 G/DL (3.4-5.0); Alkaline Phosphatase 149 U/L (45-117); Aspartate Amino Transferase 19 U/L (0-37); Blood Urea Nitrogen 19 MG/DL (7-18); Calcium 7.6 MG/DL (8.5-10.1); Glucose 64 MG/DL (74-106); Osmolality,Calculated 261.7 MOS/KG (273-304); Potassium 5.6 MMOL/L (3.5-5.1); Sodium 131 MMOL/L (136-145); Total Protein 7.7 G/DL (6.4-8.3)
[2017-06-23 19:21] LABS: RBC,Urine 137018 /HPF (0-4); WBC,Urine 880 /HPF (0-6)
[2017-06-23 19:32] LABS: Apearance,Urine Turbid (Clear); Urine Color Dark Red (Yellow)
[2017-06-23 19:34] LABS: Bilirubin,Urine Negative (Negative); Glucose,Urine (UA) Negative (Negative); Ketones,Urine Negative (Negative); Nitrite,Urine Negative (Negative); Protein,Urine >=500 MG/DL; Urine Specific Gravity 1.005 (1.001-1.035)
[2017-06-23 19:35] LABS: Blood, Urine Large mg/dL (Negative)
[2017-06-24 00:10] LABS: INR 1.5; PT Patient Result 16.1 SECS; Partial Thromboplastin Time 34.6 SECS (0-40)
[2017-06-24 05:00] LABS: INR 1.6; PT Patient Result 16.7 SECS; Partial Thromboplastin Time 34.3 SECS (0-40)
[2017-06-24 05:14] LABS: Basophils # 0.1 10*3/uL (0.0-0.2); Basophils % 1.1 % (0.0-0.8); Eosinophils # 0.5 10*3/uL (0.0-0.87); Eosinophils % 11.8 % (0.00-10.9); Hematocrit 32.3 VOL% (42.0-52.0); Hemoglobin 9.8 GM/DL (14.0-18.0); Immature Granulocytes % 0.7 %; Immature Granulocytes Absolute 0.03 #; Lymphocytes # 1.1 10*3/uL (1.4-4.0); Lymphocytes % 25.4 % (21.2-54.2); Mean Corpuscular HGB Conc 30.3 GM/DL (32-36); Mean Corpuscular Hemoglobin 24 PG (27-34); Mean Corpuscular Volume 80.3 FL (87-102); Mean Platelet Volume 11.8 FL (9.6-12.0); Monocytes # 0.5 10*3/uL (0.11-0.8); Monocytes % 10.5 % (1.7-12.7); Neutrophils # 2.3 10*3/uL (1.4-7.4); Neutrophils % 50.5 % (38.7-73.9); Platelet Count 190 T/CUMM (130-400); Red Blood Count 4.02 MC/CUMM (3.8-5.5); Red Cell Distribution Width 16.6 % (9.3-17.3); White Blood Count 4.5 T/CUMM (4-12)
[2017-06-24 06:03] LABS: Alanine Aminotransferase < 6 U/L (16-61); Albumin 2.3 G/DL (3.4-5.0); Alkaline Phosphatase 128 U/L (45-117); Aspartate Amino Transferase 15 U/L (0-37); Blood Urea Nitrogen 23 MG/DL (7-18); Calcium 7.5 MG/DL (8.5-10.1); Glucose 78 MG/DL (74-106); Osmolality,Calculated 268.4 MOS/KG (273-304); Potassium 5.1 MMOL/L (3.5-5.1); Sodium 133 MMOL/L (136-145); Thyroid Stimulating Hormone 0.828 uIU/ml (0.358-3.74); Total Protein 6.3 G/DL (6.4-8.3)
[2017-06-24 06:07] LABS: Eosinophils 6 % (0-10); Lymphocytes 18 % (20-55); Platelet Estimate Normal; Segmented Neutrophils 73 % (50-85); Total Cells Counted 100
[2017-06-24] MEDS ORDERED: HYDROmorphone 2 MG/1 ML VIAL IV PRN (07:24)
[2017-06-24] MEDS: PROMETHAZINE 25 MG TABLET PO PRN ×2 (09:23→18:08)
[2017-06-24] MEDS: oxyCODONE/ACETAMINOPHEN 5-325 MG TABLET PO PRN ×2 (09:24→18:08)
[2017-06-24] MEDS: TACROLIMUS 0.5 MG CAPSULE PO SCH ×3 (17:43→21:18)
[2017-06-24] MEDS: CALCITRIOL 0.5 MCG CAPSULE PO SCH ×2 (17:43→21:19)
[2017-06-24] MEDS: DIGOXIN 0.125 MG TABLET PO SCH (17:43)
[2017-06-24] MEDS: ASPIRIN EC 81 MG TABLET PO SCH (17:43)
[2017-06-24] MEDS: DILTIAZEM CD 180 MG CAPSULE PO SCH (21:26)
[2017-06-24] MEDS: TRAVOPROST 0.004% OPH SOLN 2.5 ML BOTTLE BOTH EYES SCH (21:26)
[2017-06-24] MEDS: METOPROLOL TARTRATE 100 MG TABLET PO SCH (21:26)
[2017-06-25] MEDS: DILTIAZEM CD 180 MG CAPSULE PO SCH ×3 (00:21→21:26)
[2017-06-25] MEDS: METOPROLOL TARTRATE 100 MG TABLET PO SCH ×3 (00:21→21:26)
[2017-06-25] MEDS: TRAVOPROST 0.004% OPH SOLN 2.5 ML BOTTLE BOTH EYES SCH ×2 (00:22→21:28)
[2017-06-25] MEDS: ONDANSETRON 4 MG/2 ML VIAL IV PRN (00:39)
[2017-06-25] MEDS: TACROLIMUS 0.5 MG CAPSULE PO SCH ×2 (09:31→21:25)
[2017-06-25] MEDS: CALCITRIOL 0.5 MCG CAPSULE PO SCH ×2 (09:31→21:25)
[2017-06-25] MEDS: ASPIRIN EC 81 MG TABLET PO SCH (09:31)
[2017-06-25] MEDS: predniSONE 5 MG TABLET PO SCH (09:31)
[2017-06-25] MEDS ORDERED: guaiFENesin 200 MG/10 ML UDCUP PO PRN (13:47)
[2017-06-25] MEDS ORDERED: SODIUM CHLORIDE 0.9% 500 ML IV ONE (13:47)
[2017-06-26 05:13] LABS: Basophils # 0.1 10*3/uL (0.0-0.2); Basophils % 1.7 % (0.0-0.8); Eosinophils # 0.3 10*3/uL (0.0-0.87); Eosinophils % 7.9 % (0.00-10.9); Hematocrit 29.5 VOL% (42.0-52.0); Immature Granulocytes % 0.5 %; Immature Granulocytes Absolute 0.02 #; Lymphocytes # 0.9 10*3/uL (1.4-4.0); Lymphocytes % 22.6 % (21.2-54.2); Mean Corpuscular HGB Conc 30.5 GM/DL (32-36); Mean Corpuscular Hemoglobin 24 PG (27-34); Mean Corpuscular Volume 79.3 FL (87-102); Mean Platelet Volume 10.9 FL (9.6-12.0); Monocytes # 0.4 10*3/uL (0.11-0.8); Monocytes % 8.7 % (1.7-12.7); Neutrophils # 2.4 10*3/uL (1.4-7.4); Neutrophils % 58.6 % (38.7-73.9); Platelet Count 173 T/CUMM (130-400); Red Blood Count 3.72 MC/CUMM (3.8-5.5); Red Cell Distribution Width 16.5 % (9.3-17.3); White Blood Count 4.2 T/CUMM (4-12)
[2017-06-26 05:34] LABS: Calcium 7.5 MG/DL (8.5-10.1); Osmolality,Calculated 270.4 MOS/KG (273-304); Potassium 4.8 MMOL/L (3.5-5.1)
[2017-06-26] MEDS ORDERED: cefTRIAXone 1,000 MG VIAL ONE (07:07)
[2017-06-26] MEDS ORDERED: cefTRIAXone 1,000 MG in SYRINGE 1 EACH IV ONE (08:21)
[2017-06-26] MEDS ORDERED: PROPOFOL 200 MG/20 ML VIAL IV ONE (08:23)
[2017-06-26] MEDS ORDERED: ESMOLOL 100 MG/10 ML VIAL IV ONE (08:24)
[2017-06-26] MEDS ORDERED: SEVOFLURANE 1 UNIT/15 MINUTE INH ONE (08:24)
[2017-06-26] MEDS ORDERED: MIDAZOLAM 2 MG/2 ML VIAL ONE (08:24)
[2017-06-26] MEDS ORDERED: SODIUM CHLORIDE 0.9% 200 ML IV ONE (08:24)
[2017-06-26] MEDS ORDERED: fentaNYL 100 MCG/2 ML VIAL ONE (08:24)
[2017-06-26] MEDS ORDERED: PHENYLEPHRINE 10 MG/1 ML VIAL IV ONE (08:24)
[2017-06-26] MEDS ORDERED: ONDANSETRON 4 MG/2 ML VIAL ONE (08:24)
[2017-06-26] MEDS: METOPROLOL TARTRATE 100 MG TABLET PO SCH ×3 (09:58→22:02)
[2017-06-26] MEDS: TACROLIMUS 0.5 MG CAPSULE PO SCH ×2 (10:11→22:15)
[2017-06-26] MEDS: CALCITRIOL 0.5 MCG CAPSULE PO SCH ×2 (10:12→22:14)
[2017-06-26] MEDS: predniSONE 5 MG TABLET PO SCH (10:13)
[2017-06-26] MEDS: DIGOXIN 0.125 MG TABLET PO SCH (10:13)
[2017-06-26] MEDS: ASPIRIN EC 81 MG TABLET PO SCH (10:13)
[2017-06-26] MEDS: DILTIAZEM CD 180 MG CAPSULE PO SCH ×2 (10:13→22:02)
[2017-06-26] MEDS: oxyCODONE/ACETAMINOPHEN 5-325 MG TABLET PO PRN ×2 (10:14→22:14)
[2017-06-26] MEDS: TRAVOPROST 0.004% OPH SOLN 2.5 ML BOTTLE BOTH EYES SCH (22:15)
[2017-06-26] MEDS: PROMETHAZINE 25 MG TABLET PO PRN (22:21)
[2017-06-27 05:45] LABS: Calcium 7.6 MG/DL (8.5-10.1); Osmolality,Calculated 274.4 MOS/KG (273-304); Potassium 5.6 MMOL/L (3.5-5.1)
[2017-06-27 05:54] LABS: Basophils # 0.1 10*3/uL (0.0-0.2); Basophils % 1.5 % (0.0-0.8); Eosinophils # 0.3 10*3/uL (0.0-0.87); Eosinophils % 5.4 % (0.00-10.9); Hematocrit 33.3 VOL% (42.0-52.0); Hemoglobin 9.7 GM/DL (14.0-18.0); Immature Granulocytes % 0.4 %; Immature Granulocytes Absolute 0.02 #; Lymphocytes % 20.8 % (21.2-54.2); Mean Corpuscular HGB Conc 29.1 GM/DL (32-36); Mean Corpuscular Hemoglobin 24 PG (27-34); Mean Corpuscular Volume 82.2 FL (87-102); Mean Platelet Volume 11.6 FL (9.6-12.0); Monocytes # 0.4 10*3/uL (0.11-0.8); Monocytes % 8.4 % (1.7-12.7); Neutrophils % 63.5 % (38.7-73.9); Platelet Count 204 T/CUMM (130-400); Red Blood Count 4.05 MC/CUMM (3.8-5.5); Red Cell Distribution Width 16.5 % (9.3-17.3); White Blood Count 4.7 T/CUMM (4-12)
[2017-06-27 06:16] LABS: Hypochromasia 1+; Ovalocytes Slight
[2017-06-27 06:17] LABS: Giant Platelets Few; Platelet Estimate Normal
[2017-06-27] MEDS: DILTIAZEM CD 180 MG CAPSULE PO SCH ×2 (08:48→16:40)
[2017-06-27] MEDS: METOPROLOL TARTRATE 100 MG TABLET PO SCH (08:48)
[2017-06-27] MEDS: CALCITRIOL 0.5 MCG CAPSULE PO SCH (08:51)
[2017-06-27] MEDS: predniSONE 5 MG TABLET PO SCH (08:51)
[2017-06-27] MEDS: ASPIRIN EC 81 MG TABLET PO SCH (08:51)
[2017-06-27] MEDS: TACROLIMUS 0.5 MG CAPSULE PO SCH (08:51)
[2017-06-27] MEDS: oxyCODONE/ACETAMINOPHEN 5-325 MG TABLET PO PRN ×2 (08:53→17:49)
[2017-06-27] MEDS ORDERED: HEPARIN 10,000 UNIT/10 ML VIAL IV PRN (10:05)
[2017-06-27] MEDS ORDERED: TACROLIMUS 0.5 MG CAPSULE PO SCH (16:46)
[2017-06-27] MEDS: ONDANSETRON 4 MG/2 ML VIAL IV PRN (17:50)
[2017-06-27 18:03] VITALS: BP 103/72
== END 2017-06-27 18:17 | disposition hospice, home (50) | DRG 698 ==
LOC: N.ED 17:00 → SUATTDRO 21:09 → N.EDINP 21:09 → N.TELEN 21:44
PROVIDERS: ADMIT Family Medicine